=== PATIENT | female | born 1990 | race African-American/Black ===

== ENCOUNTER 2019-03-06 01:07 | Emergency (ER) | payer BC, MEDICAID ==
[~2019-03-06] VITALS: Ht 172.7 cm; Wt 62.0 kg
[2019-03-06 01:26] VITALS: BP 100/46
== END 2019-03-06 02:30 | disposition left against medical advice (07) ==
LOC: ER 01:07
DX: Z53.21 Procedure and treatment not carried out due to patient leaving prior to being seen by health care provider (principal)